=== PATIENT | male | born 2000 | race Caucasian/White ===

== ENCOUNTER 2022-02-27 20:45 | Emergency (ER) | payer OTHER ==
[~2022-02-27] VITALS: Ht 172.7 cm; Wt 77.1 kg
[2022-02-27] MEDS ORDERED: SOLODYN55 MG PO (20:56)
== END 2022-02-28 03:38 | disposition home or self-care (01) ==
LOC: EMR PED 20:45
DX: R10.9 Unspecified abdominal pain (principal)